=== PATIENT | male | born 1985 | race Caucasian/White ===

== ENCOUNTER → 2022-06-01 13:43 | Outpatient (CLI) | payer OTHER, SELFPAY ==
--- NOTE | 2022-06-01 | DI.MRI.S_ITS ---
PROCEDURE: MR LUMBAR SPINE WO/W CON INDICATIONS: Dorsalgia, unspecified TECHNIQUE: Noncontrast sagittal T1 spin echo and T2 fast spin echo, sagittal STIR, axial T1 and T2 fast spin echo through the lumbar spine. In cases with scoliosis, additional coronal T2 fast spin echo may be performed. After the administration of contrast, sagittal and axial T1 spin echo with fat saturation through the lumbar spine. COMPARISON: None. FINDINGS: Image quality: Excellent. Alignment and curvature: There is normal bony alignment. Marrow: Marrow is of normal overall signal. No acute vertebral body compression fractures. No suspicious marrow enhancement. Spinal cord: Conus medullaris terminates at the L1 level. Visualized spinal cord demonstrates normal signal, without suspicious enhancement. Paraspinous soft tissues: No paravertebral masses or abnormal enhancement. The disc levels, the discs remain well hydrated. No disc bulge or protrusion. No central or foraminal stenosis. IMPRESSION: Normal MRI of the lumbar spine Approved by: Johan Sotomayor M.D. on 06/01/2022 at 16:45
== END ==
DX: M54.9 Dorsalgia, unspecified (principal)
CPT/HCPCS: 72158; A9579